=== PATIENT | female | born 1965 | race Caucasian/White ===

== ENCOUNTER 2023-08-06 09:44 | Day surgery (SDC) | payer OTHER ==
[2023-08-06] MEDS ORDERED: LIDOCAINE HCL 2% 100 MG/5 ML IJ ONE (09:45)
[2023-08-06] MEDS ORDERED: Lactated Ringers 1,000 ML IV ONE (11:18)
[2023-08-06] MEDS ORDERED: DIPRIVAN 200 MG/20 ML IV ONE (11:34)
--- NOTE | 2023-08-06 13:03 | XRAY ---
Indication: Bilateral L4-S1 MBB. Intraoperative fluoroscopy provided for 9 seconds. Single digital spot image submitted for interpretation demonstrates posterior needle tips projecting over the expected left and right L4-S1 nerve roots. Correlate with intraoperative findings/report.
--- NOTE | 2023-08-06 14:06 | XRAY ---
9 seconds of fluoroscopy was used in surgery for a bilateral L4-S1 MBB.
== END 2023-08-06 12:03 | disposition home or self-care (01) ==
LOC: SDC-PAIN 09:44
PROVIDERS: ATTEND Psychiatry & Neurology Pain Medicine
DX: M47.816 Spondylosis without myelopathy or radiculopathy, lumbar region (principal); E11.9 Type 2 diabetes mellitus without complications
CPT/HCPCS: 64493; 64494; 72020; 77002; 82947; J2704